=== PATIENT | female | born 1995 | race Caucasian/White ===

== ENCOUNTER 2018-10-19 15:12 | Emergency (ER) | payer OTHER ==
[~2018-10-19] VITALS: Ht 160 cm; Wt 77.1 kg
[~2018-10-19 15:12] MED LIST: AUGMENTIN 875875 M1 PO; GENERESS FE CH1 EACH; IBUPROFEN 600600 M1 PO; MACROBID 100 M100 M1 PO; MEDROLDOSEPACK PO; NOHOMEMEDICATIONS; NORCO 5-325 TA1 EACH PO; PROAIR HFA8.5 GM IH; PROBIOTIC1 EACH; ULTRAM 50MG TAB50 MG PO
[2018-10-19] MEDS ORDERED: XANAX 0.5 MG0.5 MG PO (15:36)
[2018-10-19] MEDS ORDERED: ABILIFY10 MG PO (15:36)
[2018-10-19] MEDS ORDERED: ZOLOFT25 MG PO (15:36)
[2018-10-19] MEDS ORDERED: AMBIEN 5 MG TABL5 M1 PO (15:37)
[2018-10-19] MEDS ORDERED: WELLBUTRIN 75 M75 M1 PO (15:37)
[2018-10-19 15:38] LABS: ABSOLUTE BASOPHILS 0.1 thou/uL (0.0-0.2); ABSOLUTE EOSINOPHILS 0.1 thou/uL (0.0-0.7); ABSOLUTE MONOCYTES 0.5 thou/uL (0.0-1.2); ABSOLUTE NEUTROPHILS 4.8 thou/uL (1.6-8.1); BASOPHILS 0.7 %; EOSINOPHILS 1.8 %; HEMATOCRIT 44.5 % (37.0-47.0); HEMOGLOBIN 15.2 gm/dL (12.0-15.0); LYMPHOCYTES 26.3 %; MCH 31.1 pg (26.0-34.0); MCHC 34.2 g/dL (28.0-37.0); MCV 90.9 fL (80.0-100.0); MONOCYTES 6.8 %; MPV 7.6 fl. (7.2-11.1); NUCLEATED RBCS 0 /100WBC; PLATELET COUNT* 255 thou/uL (150-400); POLYS 64.4 %; RDW-CV 13.4 % (10.5-14.5); WBC 7.5 thou/uL (4.0-11.0)
[2018-10-19 15:39] LABS: URINE BILIRUBIN NEGATIVE (Negative); URINE BLOOD 1+ (Negative); URINE CLARITY CLEAR; URINE COLOR YELLOW; URINE GLUCOSE-RANDOM NEGATIVE (Negative); URINE KETONES NEGATIVE (Negative); URINE LEUKOCYTES-REFLEX TRACE (Negative); URINE NITRITE-REFLEX NEGATIVE (Negative); URINE PROTEIN TRACE (Negative); URINE SPECIFIC GRAVITY 1.025 (1.005-1.030); URINE UROBILINOGEN 0.2 E.U./dl (0.2-1.0)
[2018-10-19 15:50] LABS: BACTERIA-REFLEX None Seen /HPF (None Seen); CASTS None Seen /LPF (None Seen); CRYSTALS None Seen /LPF (None Seen); SQUAMOUS 4-10 Moderate /LPF (0-3); URINE RBC None Seen /HPF (0-2); URINE WBC-REFLEX 0-5 Rare /HPF (0-5)
[2018-10-19 16:04] LABS: CALCIUM 9.5 mg/dL (8.5-10.1); CREATININE 0.8 mg/dL (0.6-1.3)
[2018-10-19 16:14] LABS: ALBUMIN 3.9 g/dL (3.4-5.0); TOTAL BILIRUBIN 0.2 mg/dL (<0.1-1.0); TOTAL PROTEIN 7.8 g/dL (6.4-8.2)
[2018-10-19] MEDS ORDERED: NAPROSYN500 MG PO (16:39)
[2018-10-19] MEDS ORDERED: BACTRIM DS TAB1 EACH PO (16:39)
[2018-10-19] MEDS ORDERED: DIFLUCAN150 MG PO (16:58)
[2018-10-19] MEDS ORDERED: ACETAMINOPHEN-1 EAC1 PO (16:58)
[2018-10-19] MEDS ORDERED: ONDANSETRON HCL4 M2 PO (16:59)
[2018-10-19 17:06] VITALS: BP 110/77
== END 2018-10-19 17:07 | disposition home or self-care (01) ==
LOC: M.ERS 15:12
PROVIDERS: Physician Assistant
DX: N39.0 Urinary tract infection, site not specified (principal); F31.9 Bipolar disorder, unspecified; Z87.442 Personal history of urinary calculi; Z88.1 Allergy status to other antibiotic agents; Z88.5 Allergy status to narcotic agent

== ENCOUNTER 2018-12-04 20:33 | Emergency (ER) | payer OTHER ==
[~2018-12-04] VITALS: Ht 160 cm; Wt 77.1 kg
[~2018-12-04 20:33] MED LIST changes: +ABILIFY10 MG PO; +ACETAMINOPHEN-1 EAC1 PO; +AMBIEN 5 MG TABL5 M1 PO; +BACTRIM DS TAB1 EACH PO; +DIFLUCAN150 MG PO; +NAPROSYN500 MG PO; +ONDANSETRON HCL4 M2 PO; +WELLBUTRIN 75 M75 M1 PO; +XANAX 0.5 MG0.5 MG PO; +ZOLOFT25 MG PO
[2018-12-04] MEDS ORDERED: CLEOCIN HCL150 MG PO (21:01)
[2018-12-04 21:13] VITALS: BP 137/62
== END 2018-12-04 21:14 | disposition home or self-care (01) ==
LOC: M.ERS 20:33
DX: S70.362A Insect bite (nonvenomous), left thigh, initial encounter (principal); L03.116 Cellulitis of left lower limb; F31.9 Bipolar disorder, unspecified; G35 Multiple sclerosis; Z88.1 Allergy status to other antibiotic agents; Z88.5 Allergy status to narcotic agent; Z88.8 Allergy status to other drugs, medicaments and biological substances; Z87.891 Personal history of nicotine dependence; Z87.442 Personal history of urinary calculi; W57.XXXA Bitten or stung by nonvenomous insect and other nonvenomous arthropods, initial encounter; Y93.89 Activity, other specified; Y92.89 Other specified places as the place of occurrence of the external cause; Y99.8 Other external cause status

== ENCOUNTER 2020-08-26 17:17 | Emergency (ER) | payer OTHER ==
[~2020-08-26] VITALS: Ht 160 cm; Wt 86.2 kg
[~2020-08-26 17:17] MED LIST changes: +CLEOCIN HCL150 MG PO
[2020-08-26] MEDS ORDERED: PROPRANOLOL 4040 M1 PO (17:29)
[2020-08-26] MEDS ORDERED: ZOLOFT100 MG PO (17:29)
[2020-08-26] MEDS ORDERED: XANAX XR1 MG PO (17:29)
[2020-08-26] MEDS ORDERED: TOPROL XL25 MG PO (17:29)
[2020-08-26] MEDS ORDERED: WELLBUTRIN XL300 MG PO (17:29)
[2020-08-26 19:48] VITALS: BP 118/72
== END 2020-08-26 19:48 | disposition home or self-care (01) ==
LOC: M.ERS 17:17
DX: G97.1 Other reaction to spinal and lumbar puncture (principal); Z87.442 Personal history of urinary calculi; Z88.1 Allergy status to other antibiotic agents; Z88.0 Allergy status to penicillin; Z88.8 Allergy status to other drugs, medicaments and biological substances; Z88.5 Allergy status to narcotic agent

== ENCOUNTER 2020-10-20 23:11 | Emergency (ER) | payer OTHER ==
[~2020-10-20] VITALS: Ht 160 cm; Wt 89.8 kg
[~2020-10-20 23:11] MED LIST changes: +PROPRANOLOL 4040 M1 PO; +TOPROL XL25 MG PO; +WELLBUTRIN XL300 MG PO; +XANAX XR1 MG PO; +ZOLOFT100 MG PO
[2020-10-20] MEDS ORDERED: TOPROL XL25 MG PO (23:22)
[2020-10-20] MEDS ORDERED: TOPAMAX 25 MG T25 M1 PO (23:23)
[2020-10-21 00:32] LABS: URINE BILIRUBIN NEGATIVE (Negative); URINE BLOOD 3+ (Negative); URINE CLARITY CLEAR; URINE COLOR STRAW; URINE GLUCOSE-RANDOM NEGATIVE (Negative); URINE KETONES NEGATIVE (Negative); URINE NITRITE-REFLEX NEGATIVE (Negative); URINE PROTEIN NEGATIVE (Negative); URINE SPECIFIC GRAVITY <= 1.005 (1.005-1.030); URINE UROBILINOGEN 0.2 E.U./dl (0.2-1.0)
[2020-10-21 00:33] LABS: URINE LEUKOCYTES-REFLEX 2+ (Negative)
[2020-10-21 00:36] LABS: HEMATOCRIT 40.4 % (37.0-47.0); HEMOGLOBIN 13.7 gm/dL (12.0-15.0); MCH 32.1 pg (26.0-34.0); MCV 94.4 fL (80.0-100.0); RBC 4.28 mil/uL (4.20-5.00); RDW-CV 12.8 % (10.5-14.5)
[2020-10-21 00:45] LABS: CALCIUM 8.7 mg/dL (8.5-10.1); CREATININE 0.8 mg/dL (0.6-1.3); POTASSIUM 3.5 mmol/L (3.5-5.1)
[2020-10-21 00:49] LABS: ALBUMIN 3.9 g/dL (3.4-5.0); TOTAL BILIRUBIN 0.2 mg/dL (<0.1-1.0); TOTAL PROTEIN 7.4 g/dL (6.4-8.2)
[2020-10-21 01:46] LABS: CASTS None Seen /LPF (None Seen); SQUAMOUS >10 Many /LPF (0-3)
[2020-10-21 01:47] LABS: URINE RBC 0-2 Rare /HPF (0-2)
[2020-10-21 01:48] LABS: CRYSTALS None Seen /LPF (None Seen)
[2020-10-21 02:37] VITALS: BP 113/83
--- NOTE | 2020-10-22 13:49 | EKG ---
[place] [address] ELECTROCARDIOGRAM REPORT Name: FIONA SAMSON Room: [facility]#: [id number] Admission: 10/20/20 Attend Phys: Discharge: 10/21/20 Date of : 89 Date of Service: 10/20/20 2315 Report #: [id number] THIS REPORT FOR: //name// [facility] ED Test Date: 2020-10-20 Test Time: 23:15:50 Pat Name: FIONA SAMSON Department: Room: Gender: [employer]: [place] : 1995 Requested By: Sonia Izquierdo Order Number: [id number] Nirmala MD: Ignacio Mccabe Measurements Intervals [place] Rate: 78 P: 70 MN: 150 QRS: 44 QRSD: 88 T: 26 QT: 407 QTc: 464 Interpretive Statements Sinus rhythm Baseline wander in lead(s) I,aVR,aVL No previous ECG available for comparison Electronically Signed On 10-22-2020 13:49:04 CDT by Ignacio Mccabe [email or web address] <ELECTRONICALLY SIGNED> By: Ignacio Mccabe MD, [facility] 10/22/20 6019 2315 2315 Ignacio Mccabe MD, [facility] /EPI
== END 2020-10-21 02:37 | disposition home or self-care (01) ==
LOC: M.ERS 23:11
PROVIDERS: Personal Emergency Response Attendant
DX: M94.0 Chondrocostal junction syndrome [Tietze] (principal); Z87.442 Personal history of urinary calculi; Z88.1 Allergy status to other antibiotic agents; Z88.0 Allergy status to penicillin; Z88.8 Allergy status to other drugs, medicaments and biological substances